=== PATIENT | female | born 1940 | race Caucasian/White ===

== ENCOUNTER 2017-05-04 04:50 | Inpatient (IN) | payer OTHER, MEDICAID ==
[~2017-05-04] VITALS: Ht 165.1 cm; Wt 61.2 kg
[~2017-05-04 04:50] MED LIST: BUPR300T46 PO; ESCI20TA37 PO; EZET1TAB29 PO; FAMO20TA8 PO; GABA-531 PO; GEMF600T3 PO; LEVO25TA7 PO; LISI20TA PO; MECL-97 PO; MULT PO; VITA1CAP PO; vitamin c PO
[2017-05-04 04:55] VITALS: BP_SYST 75
[2017-05-04] MEDS ORDERED: NACL 0.9% 1,000 ML IV SCH ×2 (05:23→07:07)
[2017-05-04 05:42] LABS: ABG TOTAL HEMOGLOBIN 9.9 G/dL (12.0-18.0); BLOOD GAS BASE EXCESS -1.1 mmol/L (-3.0-3.0); BLOOD GAS COHb% 0.3 % (0.5-1.5); BLOOD GAS HHB 1.2 % (0.0-6.0); BLOOD GAS PH 7.378 (7.350-7.450); BLOOD O2Hb% 98.2 % (94.0-97.0)
[2017-05-04] MEDS ORDERED: ketoprofen PO (05:45)
[2017-05-04] MEDS ORDERED: ATOR10TA68 PO (05:45)
[2017-05-04] MEDS ORDERED: EZET10TA PO (05:45)
[2017-05-04] MEDS ORDERED: [UNRECOGNIZED DRUG - OTHER] PO (05:45)
[2017-05-04] MEDS ORDERED: KRISS PO (05:45)
[2017-05-04] MEDS ORDERED: CEPH-568 PO (05:45)
[2017-05-04] MEDS ORDERED: TURM500C8 PO (05:45)
[2017-05-04] MEDS ORDERED: FOLI-43 PO (05:45)
[2017-05-04] MEDS ORDERED: ESOM40CA53 PO (05:45)
[2017-05-04] MEDS ORDERED: ACET-73 PO (05:45)
[2017-05-04] MEDS ORDERED: TRAM50TA92 PO (05:45)
[2017-05-04] MEDS ORDERED: ONDA4TAB5 PO (05:45)
[2017-05-04 06:03] LABS: HEMATOCRIT 30.4 % (36-48); HEMOGLOBIN 9.9 g/dL (12.0-16.0); MEAN CORPUSCULAR HEMOGLOBIN 30 pg (27-31); MEAN CORPUSCULAR HGB CONC 32 % (32-36); MEAN CORPUSCULAR VOLUME 93 fL (79.0-98.0); PLATELET COUNT (AUTO) 255 K/uL (130-430); RED BLOOD CELL COUNT(AUTO) 3.29 MIL/uL (4.2-6.2); RED CELL DISTRIBUTION WIDTH 14.9 % (9.0-15.0); WHITE BLOOD COUNT (AUTO) 13.6 K/uL (4.8-10.8)
[2017-05-04 06:07] LABS: ANION GAP 3 (5-15); CHLORIDE 108 mmol/L (98-107); CREATININE 1.92 mg/dL (0.55-1.30); GLUCOSE 223 mg/dL (70-99); POTASSIUM 4.1 mmol/L (3.5-5.1); SODIUM SERUM 139 mmol/L (136-145); UREA NITROGEN, BLOOD 31 mg/dL (8-21)
[2017-05-04 06:11] LABS: ALANINE AMINOTRANSFERASE 25 U/L (12-78); ALBUMIN 3.4 g/dL (3.4-4.8); ASPARTATE AMINOTRANSFERASE 21 U/L (10-37); LIPASE 148 U/L (73-393); PROTHROMBIN TIME 10.4 SECS (9.5-12.5); TOTAL BILIRUBIN 0.4 mg/dL (0.0-1.0); TOTAL PROTEIN, SERUM 5.9 g/dL (6.4-8.3)
[2017-05-04 06:31] LABS: BILIRUBIN,URINE NEGATIVE (NEGATIVE); BLOOD, URINE NEGATIVE (NEGATIVE); CLARITY/URINE CLEAR (CLEAR); COLOR,URINE YELLOW (YELLOW); GLUCOSE,URINE NEGATIVE (NEGATIVE); KETONES,URINE 1+ (NEGATIVE); LEUKOCYTE ESTERASE ,URINE NEGATIVE (NEGATIVE); NITRITE, URINE NEGATIVE (NEGATIVE); PH,URINE 5.5 (5.0-8.0); PROTEIN URINE NEGATIVE (NEGATIVE); UROBILINOGEN,URINE 0.2 (0.2-1.0)
[2017-05-04 06:42] LABS: BAND % (MANUAL) 7 % (0-6); BASOPHILS % (MANUAL) 0 % (0-2); EOSINOPHILS % (MANUAL) 0 % (0-7); LYMPHOCYTES % (MANUAL) 4 % (20-46); MONOCYTES % (MANUAL) 11 % (0-11)
[2017-05-04] MEDS ORDERED: PIPERACILLIN/TAZO 3.375 GM in NS 50 ML IV ONE (07:00)
[2017-05-04] MEDS ORDERED: NACL 0.9% 750 ML IV ONE (07:00)
[2017-05-04] MEDS ORDERED: ONDANSETRON HCL 4 MG/2 ML VIAL IVP PRN ×2 (07:15→09:30)
[2017-05-04] MEDS ORDERED: PIPERACILLIN/TAZOBACTAM 3.375 GM/VIAL (ZOSYN) IV ONE (07:39)
[2017-05-04 08:16] VITALS: BP_SYST 121
[2017-05-04] MEDS ORDERED: ENOXAPARIN SODIUM 40 MG/0.4 ML SYRINGE SUBCUT SCH (09:00)
[2017-05-04] MEDS ORDERED: DOCUSATE SODIUM 100 MG CAPSULE PO PRN (09:30)
[2017-05-04] MEDS ORDERED: ZOLPIDEM TARTRATE 5 MG TABLET PO PRN (09:30)
[2017-05-04] MEDS ORDERED: LORazepam 2 MG/ML VIAL IVP PRN (09:30)
[2017-05-04] MEDS ORDERED: MORPHINE 2 MG/ML INJ. SYRINGE IVP PRN (09:30)
[2017-05-04] MEDS ORDERED: MAGNESIUM SULFATE 50 ML IV PRN (09:30)
[2017-05-04] MEDS ORDERED: DEXTROSE 50% JECT 50 ML DISP.SYRIN IVP PRN (09:45)
[2017-05-04 11:39] VITALS: BP_SYST 107
[2017-05-04] MEDS: PIPERACILLIN/TAZO 2.25G/DEX-IS 50 ML IV SCH ×4 (12:00→23:17)
[2017-05-04] MEDS: D5NS 1,000 ML IV SCH (12:30)
[2017-05-04] MEDS ORDERED: PANTOPRAZOLE SODIUM 40 MG/VIAL (PROTONIX) IVP ONE (15:30)
[2017-05-04 16:27] VITALS: BP_SYST 135
[2017-05-04 20:00] VITALS: BP_SYST 118
[2017-05-05] VITALS: BP_SYST 107
[2017-05-05] MEDS: ACETAMINOPHEN 325 MG TABLET PO PRN ×2 (02:34→20:57)
[2017-05-05] MEDS: D5NS 1,000 ML IV SCH ×2 (02:46→15:36)
[2017-05-05 04:00] VITALS: BP_SYST 115
[2017-05-05] MEDS: PIPERACILLIN/TAZO 2.25G/DEX-IS 50 ML IV SCH ×3 (05:19→17:31)
[2017-05-05 07:37] LABS: PROTHROMBIN TIME 11.1 SECS (9.5-12.5)
[2017-05-05 08:00] VITALS: BP_SYST 144
[2017-05-05 08:05] LABS: ANION GAP 5 (5-15); CALCIUM 7.9 mg/dL (8.4-11.0); CHLORIDE 112 mmol/L (98-107); CREATININE 1.52 mg/dL (0.55-1.30); GLUCOSE 122 mg/dL (70-99); POTASSIUM 3.2 mmol/L (3.5-5.1); SODIUM SERUM 142 mmol/L (136-145); THYROID STIMULATING HORMONE 1.98 uIu/mL (0.34-4.82); UREA NITROGEN, BLOOD 23 mg/dL (8-21)
[2017-05-05 08:45] LABS: BASOPHILS % (AUTO) 0.5 % (0.0-2.0); EOSINOPHILS # (AUTO) 0.1 K/uL (0.0-0.4); EOSINOPHILS % (AUTO) 1.8 % (0.0-4.0); LYMPHOCYTES # (AUTO) 1.5 K/uL (1.0-5.5); LYMPHOCYTES % (AUTO) 30.3 % (20.5-51.5); MEAN CORPUSCULAR HEMOGLOBIN 30 pg (27-31); MEAN CORPUSCULAR HGB CONC 32 % (32-36); MEAN CORPUSCULAR VOLUME 93 fL (79.0-98.0); MONOCYTES # (AUTO) 0.4 K/uL (0.0-1.0); MONOCYTES % (AUTO) 8.4 % (1.7-9.3); PLATELET COUNT (AUTO) 138 K/uL (130-430); RED BLOOD CELL COUNT(AUTO) 2.06 MIL/uL (4.2-6.2); RED CELL DISTRIBUTION WIDTH 14.8 % (9.0-15.0)
[2017-05-05 08:59] LABS: HEMATOCRIT 19.1 % (36-48); HEMOGLOBIN 6.1 g/dL (12.0-16.0)
[2017-05-05] MEDS: PANTOPRAZOLE SODIUM 40 MG/VIAL (PROTONIX) IVP SCH (09:51)
[2017-05-05] MEDS ORDERED: NS IV ONE ×3 (11:45)
[2017-05-05] MEDS ORDERED: LIDOCAINE 1% IV ONE ×3 (11:45)
[2017-05-05] MEDS ORDERED: POTASSIUM CHLORIDE IV ONE ×3 (11:45)
[2017-05-05 11:47] LABS: FIBRINOGEN 207 mg/dL (200-400)
[2017-05-05] MEDS ORDERED: POTASSIUM CHLORIDE 40 MEQ, LIDOCAINE JECT 2% PF 100 MG 50 MG in NS 250 ML IV ONE (12:35)
[2017-05-05 12:41] VITALS: BP_SYST 118
[2017-05-05 16:11] VITALS: BP_SYST 121
[2017-05-05 20:00] VITALS: BP_SYST 125
[2017-05-06] VITALS: BP_SYST 133
[2017-05-06] MEDS: D5NS 1,000 ML IV SCH ×2 (00:18→14:36)
[2017-05-06] MEDS: PIPERACILLIN/TAZO 2.25G/DEX-IS 50 ML IV SCH ×4 (00:19→17:41)
[2017-05-06 03:30] VITALS: BP_SYST 143
[2017-05-06 07:53] VITALS: BP_SYST 155
[2017-05-06 08:07] LABS: BASOPHILS % (AUTO) 0.5 % (0.0-2.0); EOSINOPHILS # (AUTO) 0.1 K/uL (0.0-0.4); EOSINOPHILS % (AUTO) 2.8 % (0.0-4.0); HEMATOCRIT 25.4 % (36-48); HEMOGLOBIN 8.4 g/dL (12.0-16.0); LYMPHOCYTES # (AUTO) 1.4 K/uL (1.0-5.5); LYMPHOCYTES % (AUTO) 27.6 % (20.5-51.5); MEAN CORPUSCULAR HEMOGLOBIN 30 pg (27-31); MEAN CORPUSCULAR HGB CONC 33 % (32-36); MEAN CORPUSCULAR VOLUME 91 fL (79.0-98.0); MONOCYTES # (AUTO) 0.6 K/uL (0.0-1.0); NEUTROPHILS # (AUTO) 3.2 K/uL (1.8-7.7); NEUTROPHILS % (AUTO) 58.1 % (40.0-70.0); PLATELET COUNT (AUTO) 141 K/uL (130-430); RED BLOOD CELL COUNT(AUTO) 2.81 MIL/uL (4.2-6.2)
[2017-05-06 08:19] LABS: WHITE BLOOD COUNT (AUTO) 5.3 K/uL (4.8-10.8)
[2017-05-06] MEDS: PANTOPRAZOLE SODIUM 40 MG/VIAL (PROTONIX) IVP SCH (08:28)
[2017-05-06 08:36] LABS: ANION GAP 3 (5-15); CALCIUM 8.4 mg/dL (8.4-11.0); CHLORIDE 112 mmol/L (98-107); CREATININE 1.33 mg/dL (0.55-1.30); GLUCOSE 113 mg/dL (70-99); SODIUM SERUM 142 mmol/L (136-145); UREA NITROGEN, BLOOD 12 mg/dL (8-21)
[2017-05-06 12:02] VITALS: BP_SYST 124
[2017-05-06] MEDS ORDERED: MIDAZOLAM HCL 5 MG/5 ML VIAL IVP ONE (12:05)
[2017-05-06] MEDS ORDERED: NS IRRIG SOLN 1000 ML IR ONE (12:05)
[2017-05-06] MEDS ORDERED: LIDOCAINE/EPI 1% 1:100000 20 ML VIAL INJ ONE (12:05)
[2017-05-06] MEDS ORDERED: NS 1000 ML BAG IV ONE (12:05)
[2017-05-06] MEDS ORDERED: LR 1,000 ML IV SCH (12:36)
[2017-05-06] MEDS ORDERED: MEPERIDINE HCL/PF 25 MG/ML DISP.SYRIN IVP PRN (12:45)
[2017-05-06] MEDS ORDERED: HYDROmorphone 1 MG INJ. 1 MG/ML AMPUL IVP PRN (12:45)
[2017-05-06] MEDS ORDERED: HYDROmorphone 2 MG/ML VIAL IVP PRN ×2 (12:45)
[2017-05-06 16:09] VITALS: BP_SYST 130
[2017-05-06 20:00] VITALS: BP_SYST 123
[2017-05-07 00:02] VITALS: BP_SYST 134
[2017-05-07] MEDS: PIPERACILLIN/TAZO 2.25G/DEX-IS 50 ML IV SCH ×5 (00:06→23:46)
[2017-05-07] MEDS: D5NS 1,000 ML IV SCH ×2 (00:07→17:50)
[2017-05-07 04:44] VITALS: BP_SYST 147
[2017-05-07 07:45] LABS: BASOPHILS % (AUTO) 0.5 % (0.0-2.0); EOSINOPHILS # (AUTO) 0.2 K/uL (0.0-0.4); HEMOGLOBIN 8.9 g/dL (12.0-16.0); LYMPHOCYTES # (AUTO) 1.4 K/uL (1.0-5.5); LYMPHOCYTES % (AUTO) 20.7 % (20.5-51.5); MEAN CORPUSCULAR HEMOGLOBIN 30 pg (27-31); MEAN CORPUSCULAR HGB CONC 33 % (32-36); MEAN CORPUSCULAR VOLUME 91 fL (79.0-98.0); MONOCYTES # (AUTO) 0.7 K/uL (0.0-1.0); NEUTROPHILS # (AUTO) 4.5 K/uL (1.8-7.7); NEUTROPHILS % (AUTO) 65.8 % (40.0-70.0); PLATELET COUNT (AUTO) 159 K/uL (130-430); RED BLOOD CELL COUNT(AUTO) 2.97 MIL/uL (4.2-6.2); RED CELL DISTRIBUTION WIDTH 14.7 % (9.0-15.0); WHITE BLOOD COUNT (AUTO) 6.8 K/uL (4.8-10.8)
[2017-05-07 08:00] VITALS: BP_SYST 143
[2017-05-07 08:09] LABS: ANION GAP 3 (5-15); CALCIUM 8.5 mg/dL (8.4-11.0); CHLORIDE 108 mmol/L (98-107); CREATININE 1.13 mg/dL (0.55-1.30); GLUCOSE 116 mg/dL (70-99); POTASSIUM 3.4 mmol/L (3.5-5.1); SODIUM SERUM 139 mmol/L (136-145); UREA NITROGEN, BLOOD 9 mg/dL (8-21)
[2017-05-07] MEDS: PANTOPRAZOLE SODIUM 40 MG/VIAL (PROTONIX) IVP SCH (08:56)
[2017-05-07] MEDS ORDERED: GOLYTELY / COLYTE SOLUTION 4 LITERS PO ONE (14:45)
[2017-05-07] MEDS ORDERED: BISACODYL 5 MG TABLET.DR (DULCOLAX) PO ONE (14:45)
[2017-05-07 16:08] VITALS: BP_SYST 134
[2017-05-07] MEDS: POTASSIUM CHLORIDE 10 MEQ TAB.PRT.SR PO PRN (19:18)
[2017-05-07 19:50] VITALS: BP_SYST 138
[2017-05-07] MEDS: INSULIN ASPART 100 UNITS/ML, 10 ML VIAL (NovoLOG) SUBCUT PRN (21:26)
[2017-05-07] MEDS: ACETAMINOPHEN 325 MG TABLET PO PRN (23:46)
[2017-05-07 23:47] VITALS: BP_SYST 163
[2017-05-08 03:50] VITALS: BP_SYST 151
[2017-05-08] MEDS: PIPERACILLIN/TAZO 2.25G/DEX-IS 50 ML IV SCH ×4 (06:02→23:23)
[2017-05-08] MEDS: INSULIN ASPART 100 UNITS/ML, 10 ML VIAL (NovoLOG) SUBCUT PRN (06:08)
[2017-05-08 08:51] VITALS: BP_SYST 150
[2017-05-08] MEDS ORDERED: SIMETHICONE 40 MG/0.6 ML ML ONE (10:31)
[2017-05-08] MEDS ORDERED: MEPERIDINE HCL/PF 100 MG/ML AMP ONE (10:31)
[2017-05-08] MEDS ORDERED: MIDAZOLAM HCL 5 MG/5 ML VIAL ONE (10:32)
[2017-05-08] MEDS: D5NS 1,000 ML IV SCH ×2 (13:26→13:30)
[2017-05-08] MEDS: PANTOPRAZOLE SODIUM 40 MG/VIAL (PROTONIX) IVP SCH (13:27)
[2017-05-08 13:28] VITALS: BP_SYST 144
[2017-05-08 15:25] VITALS: BP_SYST 132
[2017-05-08 15:49] LABS: BASOPHILS % (AUTO) 0.2 % (0.0-2.0); EOSINOPHILS # (AUTO) 0.1 K/uL (0.0-0.4); EOSINOPHILS % (AUTO) 2.1 % (0.0-4.0); HEMATOCRIT 29.4 % (36-48); HEMOGLOBIN 9.5 g/dL (12.0-16.0); LYMPHOCYTES % (AUTO) 16.6 % (20.5-51.5); MEAN CORPUSCULAR HEMOGLOBIN 30 pg (27-31); MEAN CORPUSCULAR HGB CONC 32 % (32-36); MEAN CORPUSCULAR VOLUME 92 fL (79.0-98.0); MONOCYTES # (AUTO) 0.7 K/uL (0.0-1.0); MONOCYTES % (AUTO) 10.5 % (1.7-9.3); NEUTROPHILS # (AUTO) 4.5 K/uL (1.8-7.7); NEUTROPHILS % (AUTO) 70.6 % (40.0-70.0); PLATELET COUNT (AUTO) 175 K/uL (130-430); RED BLOOD CELL COUNT(AUTO) 3.21 MIL/uL (4.2-6.2); RED CELL DISTRIBUTION WIDTH 15.1 % (9.0-15.0); WHITE BLOOD COUNT (AUTO) 6.3 K/uL (4.8-10.8)
[2017-05-08 15:56] LABS: ANION GAP 4 (5-15); CALCIUM 8.5 mg/dL (8.4-11.0); CHLORIDE 112 mmol/L (98-107); CREATININE 1.01 mg/dL (0.55-1.30); GLUCOSE 104 mg/dL (70-99); POTASSIUM 3.5 mmol/L (3.5-5.1); SODIUM SERUM 143 mmol/L (136-145); UREA NITROGEN, BLOOD 7 mg/dL (8-21)
[2017-05-08 19:50] VITALS: BP_SYST 158
[2017-05-09 00:13] VITALS: BP_SYST 140
[2017-05-09 03:51] VITALS: BP_SYST 139
[2017-05-09] MEDS: PIPERACILLIN/TAZO 2.25G/DEX-IS 50 ML IV SCH ×3 (06:00→17:18)
[2017-05-09 06:44] LABS: BASOPHILS % (AUTO) 0.6 % (0.0-2.0); EOSINOPHILS # (AUTO) 0.2 K/uL (0.0-0.4); EOSINOPHILS % (AUTO) 3.5 % (0.0-4.0); HEMATOCRIT 26.1 % (36-48); HEMOGLOBIN 8.5 g/dL (12.0-16.0); LYMPHOCYTES # (AUTO) 1.3 K/uL (1.0-5.5); LYMPHOCYTES % (AUTO) 23.7 % (20.5-51.5); MEAN CORPUSCULAR HEMOGLOBIN 30 pg (27-31); MEAN CORPUSCULAR HGB CONC 33 % (32-36); MEAN CORPUSCULAR VOLUME 92 fL (79.0-98.0); MONOCYTES # (AUTO) 0.4 K/uL (0.0-1.0); MONOCYTES % (AUTO) 8.4 % (1.7-9.3); NEUTROPHILS # (AUTO) 3.4 K/uL (1.8-7.7); NEUTROPHILS % (AUTO) 63.8 % (40.0-70.0); PLATELET COUNT (AUTO) 194 K/uL (130-430); RED BLOOD CELL COUNT(AUTO) 2.83 MIL/uL (4.2-6.2); RED CELL DISTRIBUTION WIDTH 14.5 % (9.0-15.0); WHITE BLOOD COUNT (AUTO) 5.3 K/uL (4.8-10.8)
[2017-05-09 06:51] LABS: ANION GAP 3 (5-15); CALCIUM 8.6 mg/dL (8.4-11.0); CHLORIDE 109 mmol/L (98-107); CREATININE 1.05 mg/dL (0.55-1.30); GLUCOSE 124 mg/dL (70-99); POTASSIUM 3.3 mmol/L (3.5-5.1); SODIUM SERUM 141 mmol/L (136-145); UREA NITROGEN, BLOOD 6 mg/dL (8-21)
[2017-05-09 08:00] VITALS: BP_SYST 130
[2017-05-09] MEDS: PANTOPRAZOLE SODIUM 40 MG/VIAL (PROTONIX) IVP SCH (08:28)
[2017-05-09] MEDS: POTASSIUM CHLORIDE 10 MEQ TAB.PRT.SR PO PRN (08:28)
[2017-05-09 11:25] VITALS: BP_SYST 145
[2017-05-09] MEDS: D5NS 1,000 ML IV SCH ×2 (11:33→14:30)
[2017-05-09 15:23] VITALS: BP_SYST 126
[2017-05-09] MEDS ORDERED: LEVO750T45 PO (16:30)
[2017-05-09] MEDS ORDERED: DOCU-144 PO (16:32)
[2017-05-09 19:30] VITALS: BP_SYST 136
[2017-05-10] MEDS: PIPERACILLIN/TAZO 2.25G/DEX-IS 50 ML IV SCH ×4 (00:48→17:03)
[2017-05-10 00:59] VITALS: BP_SYST 122
[2017-05-10 04:38] VITALS: BP_SYST 136
[2017-05-10 07:19] LABS: BASOPHILS % (AUTO) 0.6 % (0.0-2.0); EOSINOPHILS # (AUTO) 0.2 K/uL (0.0-0.4); EOSINOPHILS % (AUTO) 3.2 % (0.0-4.0); HEMATOCRIT 24.1 % (36-48); HEMOGLOBIN 8.1 g/dL (12.0-16.0); LYMPHOCYTES # (AUTO) 1.1 K/uL (1.0-5.5); LYMPHOCYTES % (AUTO) 20.1 % (20.5-51.5); MEAN CORPUSCULAR HEMOGLOBIN 31 pg (27-31); MEAN CORPUSCULAR HGB CONC 34 % (32-36); MEAN CORPUSCULAR VOLUME 92 fL (79.0-98.0); MONOCYTES # (AUTO) 0.5 K/uL (0.0-1.0); MONOCYTES % (AUTO) 8.8 % (1.7-9.3); NEUTROPHILS # (AUTO) 3.8 K/uL (1.8-7.7); NEUTROPHILS % (AUTO) 67.3 % (40.0-70.0); PLATELET COUNT (AUTO) 194 K/uL (130-430); RED BLOOD CELL COUNT(AUTO) 2.63 MIL/uL (4.2-6.2); RED CELL DISTRIBUTION WIDTH 15.1 % (9.0-15.0); WHITE BLOOD COUNT (AUTO) 5.6 K/uL (4.8-10.8)
[2017-05-10 07:39] LABS: ANION GAP 3 (5-15); CALCIUM 8.6 mg/dL (8.4-11.0); CHLORIDE 109 mmol/L (98-107); CREATININE 1.13 mg/dL (0.55-1.30); GLUCOSE 122 mg/dL (70-99); PHOSPHORUS 3.1 mg/dL (2.7-4.5); POTASSIUM 3.5 mmol/L (3.5-5.1); SODIUM SERUM 141 mmol/L (136-145); UREA NITROGEN, BLOOD 8 mg/dL (8-21)
[2017-05-10 07:43] VITALS: BP_SYST 126
[2017-05-10] MEDS: PANTOPRAZOLE SODIUM 40 MG/VIAL (PROTONIX) IVP SCH (09:03)
[2017-05-10] MEDS: ACETAMINOPHEN 325 MG TABLET PO PRN (10:27)
[2017-05-10] MEDS: HYDROcodone/ACETAMIN 10-325 MG TAB PO PRN ×2 (11:19→21:43)
[2017-05-10] MEDS ORDERED: HYDROcodone/ACETAMIN 10-325 MG TAB ONE (11:26)
[2017-05-10 11:30] VITALS: BP_SYST 140
[2017-05-10] MEDS ORDERED: FUROSEMIDE 20 MG TABLET PO ONE (12:30)
[2017-05-10 15:24] VITALS: BP_SYST 132
[2017-05-10 19:39] VITALS: BP_SYST 126
[2017-05-11] VITALS (7 sets, daily range): BP systolic 112–146
[2017-05-11] MEDS: PIPERACILLIN/TAZO 2.25G/DEX-IS 50 ML IV SCH ×4 (00:26→17:44)
[2017-05-11 07:43] LABS: BASOPHILS % (AUTO) 0.7 % (0.0-2.0); EOSINOPHILS # (AUTO) 0.2 K/uL (0.0-0.4); EOSINOPHILS % (AUTO) 3.5 % (0.0-4.0); HEMATOCRIT 26.8 % (36-48); HEMOGLOBIN 8.9 g/dL (12.0-16.0); LYMPHOCYTES # (AUTO) 1.6 K/uL (1.0-5.5); LYMPHOCYTES % (AUTO) 26.1 % (20.5-51.5); MEAN CORPUSCULAR HEMOGLOBIN 31 pg (27-31); MEAN CORPUSCULAR HGB CONC 33 % (32-36); MEAN CORPUSCULAR VOLUME 93 fL (79.0-98.0); MONOCYTES # (AUTO) 0.7 K/uL (0.0-1.0); MONOCYTES % (AUTO) 10.9 % (1.7-9.3); NEUTROPHILS # (AUTO) 3.6 K/uL (1.8-7.7); NEUTROPHILS % (AUTO) 58.8 % (40.0-70.0); PLATELET COUNT (AUTO) 221 K/uL (130-430); RED BLOOD CELL COUNT(AUTO) 2.89 MIL/uL (4.2-6.2); RED CELL DISTRIBUTION WIDTH 14.9 % (9.0-15.0); WHITE BLOOD COUNT (AUTO) 6.1 K/uL (4.8-10.8)
[2017-05-11 07:47] LABS: ANION GAP 5 (5-15); CALCIUM 8.7 mg/dL (8.4-11.0); CHLORIDE 106 mmol/L (98-107); CREATININE 1.26 mg/dL (0.55-1.30); GLUCOSE 100 mg/dL (70-99); PHOSPHORUS 4.3 mg/dL (2.7-4.5); POTASSIUM 3.3 mmol/L (3.5-5.1); SODIUM SERUM 141 mmol/L (136-145); UREA NITROGEN, BLOOD 15 mg/dL (8-21)
[2017-05-11] MEDS: PANTOPRAZOLE SODIUM 40 MG/VIAL (PROTONIX) IVP SCH (08:54)
[2017-05-11] MEDS: POTASSIUM CHLORIDE 10 MEQ TAB.PRT.SR PO PRN (09:37)
== END 2017-05-11 20:23 | disposition home health service (06) | DRG 871 ==
LOC: SED 04:50 → STU 07:17 → SMU 05-08 13:00
PROVIDERS: ADMIT General Practice; ATTEND General Practice
PROC: 30233N1 Transfusion of Nonautologous Red Blood Cells into Peripheral Vein, Percutaneous Approach (ICD-10-PCS; principal; 2017-05-05)
PROC: 0H98XZZ Drainage of Buttock Skin, External Approach (ICD-10-PCS; 2017-05-06)
PROC: 0DB98ZX Excision of Duodenum, Via Natural or Artificial Opening Endoscopic, Diagnostic (ICD-10-PCS; 2017-05-08)
PROC: 0DJD8ZZ Inspection of Lower Intestinal Tract, Via Natural or Artificial Opening Endoscopic (ICD-10-PCS; 2017-05-08)
DX: A41.9 Sepsis, unspecified organism (principal); N17.0 Acute kidney failure with tubular necrosis; I95.9 Hypotension, unspecified; D63.8 Anemia in other chronic diseases classified elsewhere; G30.9 Alzheimer's disease, unspecified; D64.9 Anemia, unspecified; S30.0XXA Contusion of lower back and pelvis, initial encounter; I12.9 Hypertensive chronic kidney disease with stage 1 through stage 4 chronic kidney disease, or unspecified chronic kidney disease; F02.80 Dementia in other diseases classified elsewhere, unspecified severity, without behavioral disturbance, psychotic disturbance, mood disturbance, and anxiety; K52.9 Noninfective gastroenteritis and colitis, unspecified; E03.9 Hypothyroidism, unspecified; K76.9 Liver disease, unspecified; K21.9 Gastro-esophageal reflux disease without esophagitis; K44.9 Diaphragmatic hernia without obstruction or gangrene; K29.70 Gastritis, unspecified, without bleeding; K64.9 Unspecified hemorrhoids; K57.90 Diverticulosis of intestine, part unspecified, without perforation or abscess without bleeding; M51.36 Other intervertebral disc degeneration, lumbar region; M51.34 Other intervertebral disc degeneration, thoracic region; E78.00 Pure hypercholesterolemia, unspecified; F32.9 Major depressive disorder, single episode, unspecified; R09.02 Hypoxemia; N18.9 Chronic kidney disease, unspecified; Z66 Do not resuscitate; Z91.81 History of falling; Z79.899 Other long term (current) drug therapy; Z88.6 Allergy status to analgesic agent; Z88.2 Allergy status to sulfonamides; Z88.8 Allergy status to other drugs, medicaments and biological substances
CPT/HCPCS: 36415; 36600; 43239; 45380; 71010; 74000-TC; 74270-TC; 76700-TC; 80048; 80053; 81003; 82803-TC; 82962; 83036; 83605; 83690-TC; 83735-TC; 83880; 84100-TC; 84443-TC; 84484; 85007; 85025; 85027; 85379; 85384-TC; 85610-TC; 85730-TC; 86886; 86900; 86901; 86920; 87040-TC; 87070; 87070-TC; 87075-TC; 87081; 87086; 88305; 88313; 93005; 93880; 96361; 96365; 97116-GP; 97530-GP; 99285; C9113; J1650; J1815; J2001; J2060; J2175; J2250; J2270; J2543; J3475; J3480; J7030; J7042; J7050; P9021

== ENCOUNTER 2021-01-07 19:52 | Emergency (ER) | payer OTHER, MEDICAID ==
[~2021-01-07] VITALS: Ht 162.6 cm; Wt 63.5 kg
[~2021-01-07 19:52] MED LIST changes: +ACET-73 PO; +ATOR10TA68 PO; +DOCU-144 PO; -ESCI20TA37 PO; +ESCI20TA38 PO; +ESOM40CA53 PO; +EZET10TA PO; -EZET1TAB29 PO; -FAMO20TA8 PO; +FOLI-43 PO; -GABA-531 PO; -GEMF600T3 PO; +KRISS PO; +LEVO750T45 PO; -MECL-97 PO; +ONDA4TAB5 PO; +TRAM50TA92 PO; +TURM500C9 PO; +[UNRECOGNIZED DRUG - OTHER] PO
[2021-01-07 19:55] VITALS: BP_SYST 173
[2021-01-07] MEDS ORDERED: LIDOCAINE/EPI 1% 1:100000 20 ML VIAL INJ ONE (20:00)
[2021-01-07 21:45] VITALS: BP_SYST 155
== END 2021-01-07 21:45 | disposition home or self-care (01) ==
LOC: SED 19:52
DX: S01.81XA Laceration without foreign body of other part of head, initial encounter (principal); I10 Essential (primary) hypertension; E11.9 Type 2 diabetes mellitus without complications; E07.9 Disorder of thyroid, unspecified; E78.00 Pure hypercholesterolemia, unspecified; Z79.899 Other long term (current) drug therapy; Z88.2 Allergy status to sulfonamides; Z88.6 Allergy status to analgesic agent; W01.0XXA Fall on same level from slipping, tripping and stumbling without subsequent striking against object, initial encounter; Y93.89 Activity, other specified; Y92.89 Other specified places as the place of occurrence of the external cause; Y99.8 Other external cause status
CPT/HCPCS: 70450-TC; 76376; 99284

== ENCOUNTER 2021-03-09 21:43 | Emergency (ER) | payer OTHER, MEDICAID ==
[~2021-03-09] VITALS: Ht 162.6 cm; Wt 65.8 kg
[2021-03-09] MEDS ORDERED: BACITRACIN 1 GM OINT TP ONE ×2 (21:45→21:50)
[2021-03-09 21:50] VITALS: BP_SYST 160
[2021-03-10 03:59] VITALS: BP_SYST 138
== END 2021-03-10 03:59 | disposition home or self-care (01) ==
LOC: SED 21:43
DX: S50.02XA Contusion of left elbow, initial encounter (principal); S09.90XA Unspecified injury of head, initial encounter; I10 Essential (primary) hypertension; E11.9 Type 2 diabetes mellitus without complications; F32.9 Major depressive disorder, single episode, unspecified; Z88.6 Allergy status to analgesic agent; Z88.2 Allergy status to sulfonamides; Z88.5 Allergy status to narcotic agent; Z79.899 Other long term (current) drug therapy; W18.39XA Other fall on same level, initial encounter; Y93.89 Activity, other specified; Y92.89 Other specified places as the place of occurrence of the external cause; Y99.8 Other external cause status
CPT/HCPCS: 70450-TC; 76376; 99285

== ENCOUNTER 2021-04-30 22:04 | Emergency (ER) | payer OTHER, MEDICAID ==
[~2021-04-30] VITALS: Ht 162.6 cm; Wt 61.2 kg
[2021-04-30 22:10] VITALS: BP_SYST 153
[2021-04-30] MEDS ORDERED: ACETAMINOPHEN 500 MG TABLET PO ONE (23:00)
[2021-04-30] MEDS ORDERED: BUPR-120 PO (23:04)
[2021-04-30] MEDS ORDERED: LISI10TA29 PO (23:04)
[2021-04-30 23:51] LABS: BASOPHILS % (AUTO) 0.5 % (0.0-2.0); HEMATOCRIT 35.5 % (36-48); HEMOGLOBIN 12.1 g/dL (12.0-16.0); LYMPHOCYTES % (AUTO) 21.5 % (20.5-51.5); MEAN CORPUSCULAR HEMOGLOBIN 33 pg (27-31); MEAN CORPUSCULAR HGB CONC 34 % (32-36); MEAN CORPUSCULAR VOLUME 96 fL (79.0-98.0); MONOCYTES # (AUTO) 0.4 K/uL (0.0-1.0); MONOCYTES % (AUTO) 7.9 % (1.7-9.3); NEUTROPHILS # (AUTO) 3.3 K/uL (1.8-7.7); NEUTROPHILS % (AUTO) 69.1 % (40.0-70.0); PLATELET COUNT (AUTO) 151 K/uL (130-430); RED BLOOD CELL COUNT(AUTO) 3.72 MIL/uL (4.2-6.2); RED CELL DISTRIBUTION WIDTH 13.6 % (9.0-15.0); WHITE BLOOD COUNT (AUTO) 4.7 K/uL (4.8-10.8)
[2021-05-01 00:10] LABS: ANION GAP 7 (5-15); CALCIUM 8.7 mg/dL (8.4-11.0); CHLORIDE 103 mmol/L (98-107); CREATININE 1.38 mg/dL (0.55-1.30); GLUCOSE 108 mg/dL (70-99); POTASSIUM 4.7 mmol/L (3.5-5.1); SODIUM SERUM 138 mmol/L (136-145); UREA NITROGEN, BLOOD 26 mg/dL (8-21)
[2021-05-01 00:38] LABS: BILIRUBIN,URINE NEGATIVE (NEGATIVE); BLOOD, URINE NEGATIVE (NEGATIVE); CLARITY/URINE CLEAR (CLEAR); COLOR,URINE YELLOW (YELLOW); GLUCOSE,URINE NEGATIVE (NEGATIVE); KETONES,URINE NEGATIVE (NEGATIVE); LEUKOCYTE ESTERASE ,URINE NEGATIVE (NEGATIVE); NITRITE, URINE NEGATIVE (NEGATIVE); PH,URINE 7.5 (5.0-8.0); PROTEIN URINE NEGATIVE (NEGATIVE); UROBILINOGEN,URINE 0.2 (0.2-1.0)
[2021-05-01] MEDS ORDERED: ACET-2634 PO (01:57)
[2021-05-01 02:25] VITALS: BP_SYST 155
== END 2021-05-01 02:25 | disposition home or self-care (01) ==
LOC: SED 22:04
DX: S70.02XA Contusion of left hip, initial encounter (principal); I10 Essential (primary) hypertension; E11.9 Type 2 diabetes mellitus without complications; Z88.2 Allergy status to sulfonamides; Z88.5 Allergy status to narcotic agent; Z88.6 Allergy status to analgesic agent; Z79.899 Other long term (current) drug therapy; W18.39XA Other fall on same level, initial encounter; Y93.89 Activity, other specified; Y92.89 Other specified places as the place of occurrence of the external cause; Y99.8 Other external cause status
CPT/HCPCS: 36415; 73502; 80048; 81003; 85025; 99284

== ENCOUNTER 2021-08-31 21:40 | Emergency (ER) | payer OTHER, MEDICAID ==
[~2021-08-31] VITALS: Ht 162.6 cm; Wt 45.4 kg
[~2021-08-31 21:40] MED LIST changes: +ACET-2634 PO; +BUPR-120 PO; -BUPR300T46 PO; -LEVO750T45 PO; +LISI10TA29 PO; -LISI20TA PO; -TRAM50TA92 PO; -[UNRECOGNIZED DRUG - OTHER] PO
[2021-08-31 21:42] VITALS: BP_SYST 177
--- NOTE | 2021-08-31 21:42 | NUR ---
Placed in room 04 . Placed on ekg monitor tech, blood pressure machine and pulse oximeter. To gown for exam. Side rails up.
--- NOTE | 2021-08-31 21:44 | NUR ---
Dr Haynes evaluating patient at bedside
--- NOTE | 2021-08-31 21:45 | NUR ---
Pt off the unit for CT
--- NOTE | 2021-08-31 21:52 | NUR ---
Patient returned from ct scan positioned for comfort. Bed to low position sr up, continue to monitor.
--- NOTE | 2021-08-31 22:10 | NUR ---
# 16 FR Valencia catheter with use of sterile technique. Immediate return of 100 cc clear yellow urine noted. Bedside drainage bag placed below level of bladder. Urine sample collected and sent to lab. Pt tolerated procedure.
[2021-08-31 22:35] LABS: BILIRUBIN,URINE NEGATIVE (NEGATIVE); BLOOD, URINE 1+ (NEGATIVE); CLARITY/URINE CLEAR (CLEAR); COLOR,URINE YELLOW (YELLOW); GLUCOSE,URINE NEGATIVE (NEGATIVE); KETONES,URINE 1+ (NEGATIVE); LEUKOCYTE ESTERASE ,URINE NEGATIVE (NEGATIVE); NITRITE, URINE NEGATIVE (NEGATIVE); PROTEIN URINE TRACE (NEGATIVE); UROBILINOGEN,URINE 0.2 (0.2-1.0)
[2021-08-31 22:51] LABS: BASOPHILS % (AUTO) 0.4 % (0.0-2.0); HEMATOCRIT 40.7 % (36-48); HEMOGLOBIN 13.6 g/dL (12.0-16.0); LYMPHOCYTES # (AUTO) 0.5 K/uL (1.0-5.5); LYMPHOCYTES % (AUTO) 8.8 % (20.5-51.5); MEAN CORPUSCULAR HEMOGLOBIN 32 pg (27-31); MEAN CORPUSCULAR HGB CONC 34 % (32-36); MEAN CORPUSCULAR VOLUME 94 fL (79.0-98.0); MONOCYTES # (AUTO) 0.2 K/uL (0.0-1.0); NEUTROPHILS # (AUTO) 4.8 K/uL (1.8-7.7); NEUTROPHILS % (AUTO) 87.8 % (40.0-70.0); PLATELET COUNT (AUTO) 194 K/uL (130-430); RED BLOOD CELL COUNT(AUTO) 4.31 MIL/uL (4.2-6.2); RED CELL DISTRIBUTION WIDTH 13.4 % (9.0-15.0); WHITE BLOOD COUNT (AUTO) 5.5 K/uL (4.8-10.8)
[2021-08-31] MEDS ORDERED: KETAMINE 30 MG/3 ML SYRINGE IM ONE (23:00)
--- NOTE | 2021-08-31 23:00 | NUR ---
Patient starting to form words but still some words incomprehensible and but formed words are delayed. Positioned patient for comfort. Be to low position sr up. continue to monitor.
[2021-08-31 23:22] LABS: ANION GAP 10 (5-15); CALCIUM 9.3 mg/dL (8.4-11.0); CHLORIDE 102 mmol/L (98-107); CREATININE 1.34 mg/dL (0.55-1.30); GLUCOSE 115 mg/dL (70-99); POTASSIUM 4.3 mmol/L (3.5-5.1); SODIUM SERUM 140 mmol/L (136-145); UREA NITROGEN, BLOOD 20 mg/dL (8-21)
[2021-08-31] MEDS ORDERED: IOHEXOL 350 mgI/mL, 150 ML INFUS..BTL IV ONE (23:22)
[2021-08-31 23:27] LABS: PROTHROMBIN TIME 10.6 SECS (9.5-12.5)
[2021-08-31 23:28] LABS: ALANINE AMINOTRANSFERASE 28 U/L (12-78); ALBUMIN 4.1 g/dL (3.4-4.8); ASPARTATE AMINOTRANSFERASE 26 U/L (10-37); TOTAL BILIRUBIN 0.5 mg/dL (0.0-1.0)
[2021-08-31 23:38] LABS: BACTERIA,URINE FEW /HPF (None Seen); WBC,URINE 0-3 /HPF (0-3)
[2021-08-31] MEDS ORDERED: ASPIRIN 600 MG/SUPP.RECT RC ONE (23:45)
--- NOTE | 2021-08-31 23:48 | NUR ---
gabriela (karo) obtained and sent to lab.
--- NOTE | 2021-09-01 | NUR ---
ASA supp not available here at [facility] [place].
--- NOTE | 2021-09-01 00:25 | NUR ---
TRANSFER INFO [facility] ED Dr. Thurman [phone] [facility] ETA 0130 SPOKE TO [facility]
--- NOTE | 2021-09-01 00:28 | NUR ---
patient to ct scan via gurney [facility] w/ parks recreation director.
[2021-09-01 00:53] LABS: CKMB RELATIVE INDEX 0.9 (0.0-2.9); CREATINE KINASE MB 2.7 ng/mL (0-3.6)
--- NOTE | 2021-09-01 01:34 | NUR ---
Report given to [facility] lead [facility]. Patient to be transferred to [facility]. Is being transferred due to higher level of care. Receiving facility has accepting physician and available space. ER physician has signed transfer form. Patient or responsible green party has agreed to transfer and signed form. Patient belongings inventoried and will be sent with patient. Copy of nursing notes, lab reports, EKG, Physicians Orders and X-rays to be sent with patient. Report called to Natalie at receiving facility. Receiving physician is MD Waite. [facility] ambulance service has been called for transfer. ETA is now.
[2021-09-01 01:36] VITALS: BP_SYST 151
== END 2021-09-01 01:34 | disposition short-term general hospital (02) ==
LOC: SED 21:40
DX: I63.9 Cerebral infarction, unspecified (principal); F80.2 Mixed receptive-expressive language disorder; I21.4 Non-ST elevation (NSTEMI) myocardial infarction; I12.9 Hypertensive chronic kidney disease with stage 1 through stage 4 chronic kidney disease, or unspecified chronic kidney disease; E11.22 Type 2 diabetes mellitus with diabetic chronic kidney disease; N18.30 Chronic kidney disease, stage 3 unspecified; F03.90 Unspecified dementia, unspecified severity, without behavioral disturbance, psychotic disturbance, mood disturbance, and anxiety; Z20.822 Contact with and (suspected) exposure to COVID-19; Z88.2 Allergy status to sulfonamides; Z88.5 Allergy status to narcotic agent; Z88.6 Allergy status to analgesic agent; Z79.899 Other long term (current) drug therapy
CPT/HCPCS: 36415; 70450; 70496; 70498; 71045; 76376; 80053; 81000; 82550; 82553; 83605; 83880; 84484; 85025; 85610; 85730; 87040; 87426; 93005; 99291; Q9967; 99285

== ENCOUNTER 2022-08-25 17:05 | Inpatient (IN) | payer OTHER, MEDICAID ==
[~2022-08-25] VITALS: Ht 154.9 cm; Wt 63.3 kg
[~2022-08-25 17:05] MED LIST changes: +Aspirin Ec PO; +DOXY100C PO; -ESCI20TA38 PO
[2022-08-25 17:28] VITALS: BP_SYST 158
[2022-08-25] MEDS ORDERED: LORazepam 2 MG/ML VIAL IVP ONE ×2 (17:45→21:00)
[2022-08-25 18:04] LABS: BASOPHILS # (AUTO) 0.1 K/uL (0.0-0.2); HEMATOCRIT 39.4 % (36-48); HEMOGLOBIN 13.3 g/dL (12.0-16.0); WHITE BLOOD COUNT (AUTO) 4.2 K/uL (4.8-10.8)
[2022-08-25 18:09] LABS: BASOPHILS % (AUTO) 1.2 % (0.0-2.0); EOSINOPHILS % (AUTO) 0.3 % (0.0-4.0); LYMPHOCYTES # (AUTO) 0.9 K/uL (1.0-5.5); LYMPHOCYTES % (AUTO) 20.9 % (20.5-51.5); MEAN CORPUSCULAR HEMOGLOBIN 31 pg (27-31); MEAN CORPUSCULAR HGB CONC 34 % (32-36); MEAN CORPUSCULAR VOLUME 93 fL (79.0-98.0); MONOCYTES # (AUTO) 0.3 K/uL (0.0-1.0); MONOCYTES % (AUTO) 7.9 % (1.7-9.3); NEUTROPHILS # (AUTO) 2.9 K/uL (1.8-7.7); NEUTROPHILS % (AUTO) 69.7 % (40.0-70.0); PLATELET COUNT (AUTO) 170 K/uL (130-430); RED BLOOD CELL COUNT(AUTO) 4.22 MIL/uL (4.2-6.2); RED CELL DISTRIBUTION WIDTH 16.7 % (9.0-15.0)
[2022-08-25 19:08] LABS: ANION GAP 14 (5-15); CALCIUM 9.3 mg/dL (8.4-11.0); CHLORIDE 103 mmol/L (98-107); CREATININE 1.27 mg/dL (0.55-1.30); GLUCOSE 125 mg/dL (70-99); UREA NITROGEN, BLOOD 25 mg/dL (8-21)
[2022-08-25 19:17] LABS: ALANINE AMINOTRANSFERASE 32 U/L (12-78); ALBUMIN 3.6 g/dL (3.4-4.8); ASPARTATE AMINOTRANSFERASE 31 U/L (10-37); TOTAL BILIRUBIN 0.4 mg/dL (0.0-1.0)
[2022-08-25] MEDS ORDERED: ASPIRIN 325 MG TABLET PO ONE (20:00)
--- NOTE | 2022-08-25 20:13 | NUR ---
Patient to ER bed H3 to gown for evaluation. Side rails up. Report given to JORGE A HOPKINS.
[2022-08-25] MEDS ORDERED: LORazepam 2 MG/ML VIAL ONE (20:22)
[2022-08-25] MEDS ORDERED: levETIRAcetam 1,000 MG in NS 90 ML IV ONE (20:30)
--- NOTE | 2022-08-25 20:30 | NUR ---
Report received from SANDEEP Blancas; assuming care of patient at this time.
--- NOTE | 2022-08-25 20:35 | NUR ---
Patient presents to ED from [facility] for c/o tonic colonic seizure x2. Patient's last witnessed seizure was approx 3 hours ago. Patient has hx of HTN, hyperthyroid, CKD, depression. ER MD Mart made aware.
[2022-08-25] MEDS: HEPARIN SODIUM,PORCINE 5,000 UNITS/ML VIAL SUBCUT SCH (21:00)
[2022-08-25] MEDS ORDERED: MUPIROCIN 2% TOPICAL OINTMENT 22 GM NS PRN (21:00)
[2022-08-25] MEDS ORDERED: ACETAMINOPHEN 325 MG TABLET PO PRN (21:00)
[2022-08-25] MEDS ORDERED: DOCUSATE SODIUM 100 MG CAPSULE PO PRN (21:00)
[2022-08-25] MEDS ORDERED: ONDANSETRON HCL 4 MG/2 ML VIAL IVP PRN (21:00)
[2022-08-25] MEDS ORDERED: MAGNESIUM SULFATE 50 ML IV PRN (21:00)
[2022-08-25] MEDS ORDERED: ZOLPIDEM TARTRATE 5 MG TABLET PO PRN (21:00)
[2022-08-25] MEDS ORDERED: POTASSIUM CHLORIDE 20 MEQ TAB.PRT.SR PO PRN (21:00)
[2022-08-25] MEDS: levETIRAcetam 500 MG TABLET PO SCH (21:00)
[2022-08-25] MEDS ORDERED: LORazepam 2 MG/ML VIAL IVP PRN (21:00)
--- NOTE | 2022-08-25 21:26 | NUR ---
Patient had seizure lasting 30 seconds; ER MD Mart made aware; gave verbal order for 1mg Ativan IV at this time.
--- NOTE | 2022-08-25 21:50 | NUR ---
Pt moved to bed 8.Primary nurse notified.
--- NOTE | 2022-08-25 23:00 | NUR ---
Patient sleeping comfortably in bed with seizure pads and safety precautions in place. Nad noted at this time.
--- NOTE | 2022-08-26 02:35 | NUR ---
COVID 19 SWAB TEST ADMINISTERED BY ILYA MESSINA AND SENT TO THE LAB FOR ANALYSIS
--- NOTE | 2022-08-26 05:36 | NUR ---
Patient sleeping comfortably in bed with seizure pads and safe precautions in place. Nad noted at this time
--- NOTE | 2022-08-26 07:17 | NUR ---
Report given to SANDEEP Segundo to assume care of patient at this time.
--- NOTE | 2022-08-26 07:35 | NUR ---
RECEIVED PT, IN NAD. PT WITH EYES CLOSED, VSS. SAFTEY PRECAUTIONS IN PLACE.
[2022-08-26 07:57] LABS: ANION GAP 5 (5-15); CALCIUM 9.3 mg/dL (8.4-11.0); CHLORIDE 103 mmol/L (98-107); CREATININE 0.98 mg/dL (0.55-1.30); GLUCOSE 106 mg/dL (70-99); UREA NITROGEN, BLOOD 16 mg/dL (8-21)
[2022-08-26 08:15] LABS: BASOPHILS # (AUTO) 0.1 K/uL (0.0-0.2); BASOPHILS % (AUTO) 0.8 % (0.0-2.0); EOSINOPHILS % (AUTO) 0.1 % (0.0-4.0); HEMATOCRIT 42.5 % (36-48); HEMOGLOBIN 14.2 g/dL (12.0-16.0); LYMPHOCYTES # (AUTO) 1.5 K/uL (1.0-5.5); MEAN CORPUSCULAR HEMOGLOBIN 31 pg (27-31); MEAN CORPUSCULAR HGB CONC 33 % (32-36); MEAN CORPUSCULAR VOLUME 93 fL (79.0-98.0); MONOCYTES # (AUTO) 0.6 K/uL (0.0-1.0); NEUTROPHILS # (AUTO) 4.9 K/uL (1.8-7.7); NEUTROPHILS % (AUTO) 69.1 % (40.0-70.0); PLATELET COUNT (AUTO) 190 K/uL (130-430); RED BLOOD CELL COUNT(AUTO) 4.59 MIL/uL (4.2-6.2); RED CELL DISTRIBUTION WIDTH 16.7 % (9.0-15.0)
--- NOTE | 2022-08-26 08:26 | NUR ---
DR GIORDANO PAGED TO NOTIFY OF HIGH TROPONIN. DR COTTON'S CONSULT. DR THORNTON INFORMED, BUT INFORMED TO NOTIFY [facility]
[2022-08-26 08:48] LABS: WHITE BLOOD COUNT (AUTO) 7.1 K/uL (4.8-10.8)
[2022-08-26] MEDS: ASPIRIN 81 MG TABLET(ECOTRIN) PO SCH (09:00)
[2022-08-26] MEDS ORDERED: LISINOPRIL 10 MG TABLET (PRINIVIL) PO SCH (09:00)
[2022-08-26] MEDS: levETIRAcetam 500 MG TABLET PO SCH ×2 (09:00→21:55)
[2022-08-26] MEDS: LEVOTHYROXINE SODIUM 0.05 MG TABLET PO SCH (09:00)
--- NOTE | 2022-08-26 09:03 | NUR ---
DR COTTON IN NURSING STATION, TALKED WITH PT'S DTR. CODE STATUS FORM FILED DNR, SIGNED BY DR COTTON.
--- NOTE | 2022-08-26 09:30 | NUR ---
DTR AVILA CALLED WITH ECHO RESULTS DONE ON 03/22/22, EF-56%, TRACE MR, TRACE TR.
--- NOTE | 2022-08-26 09:43 | NUR ---
MALKA TORRES AT NURSING STATION, UPDATED ON STATUS AND LAB VALUES. INFORMED THT DTR CALLED WITH ECHO RESULTS-INFORMED WITH INFO.
[2022-08-26] MEDS: buPROPion HCL 150 MG XL TAB PO SCH (09:58)
[2022-08-26] MEDS: HEPARIN SODIUM,PORCINE 5,000 UNITS/ML VIAL SUBCUT SCH ×2 (10:27→22:01)
[2022-08-26] MEDS: NACL 0.9% 1,000 ML IV SCH ×2 (10:33→22:10)
--- NOTE | 2022-08-26 12:25 | NUR ---
PT SOILED IN URINE. BED LINEN CHANGED AND PT'S GOWN CHNAGED. REPOSITIONED FOR COMFORT. SAFTEY AND SEUIZRE PRECAUTIONS IN PLACE.
--- NOTE | 2022-08-26 14:06 | NUR ---
DR COTTON PAGED TO INFORM ABOUT HIGH BP. PT DROWSY, UNABLE TO AROUSE TO TAKE PO MEDS.
--- NOTE | 2022-08-26 15:37 | NUR ---
EEG BEING DONE AT BEDSIDE
--- NOTE | 2022-08-26 15:39 | NUR ---
DR COTTON INFORMED ABOUT HIGH BP, ORDERS RECEIEVED.
[2022-08-26] MEDS ORDERED: hydrALAZINE HCL 20 MG/ML VIAL IVP PRN (16:00)
--- NOTE | 2022-08-26 16:59 | NUR ---
Admit bed requested Patient will be admitted to care of . Admitted to TELEMETRY unit. Diagnosis NEW ONSET SEIZURE Inpatient (Yes or No) YES Observation (Yes or No) NO Orientation concerns or request close to nursing station (Yes or No) NO Covid Status NEG On vent or bipap NO Isolation requirements NO Needs a sitter NO From Home (Yes or if No enter name of facility) Requires Dialysis (Yes or No) NO Med Rec Completed (Yes of No) YES
--- NOTE | 2022-08-26 17:43 | NUR ---
PT WITH EYES OPEN, LEGS IN BETWEEN RAILS. ALERT TO FIRST NAME ONLY. DENIES ANY PAIN. REORIENTED TO PLACE, TIME AND PLAN OF CARE. IV FLUIDS INFUSING WELL. REPOSITIONED FOR COMFORT. WILL CONT OT MONITOR CLOSELY. NO SEIZURE ACTIVITY NOTED.
--- NOTE | 2022-08-26 18:49 | NUR ---
Patient will be admitted to care of DR JAVIER. Admitted to unit. Will go to room . Belongings list completed. Complete and up to date summary report printed. SBAR report to be given at bedside with opportunity for questions.
--- NOTE | 2022-08-26 19:00 | NUR ---
ADMISSION NOTE Received patient from ER via gurney. Patient admitted with diagnosis of NEW ONSET SEIZURE. Patient is awake, alert, oriented X 1-2. Patient oriented to hospital room, call light, toileting, pain management and safety-teach back done. Patient informed that their room number is 112B. Personal belongings checked and Belongings List documented. Call light within reach.
[2022-08-26 19:59] VITALS: BP_SYST 146
[2022-08-26 20:00] VITALS: BP_SYST 146
[2022-08-27 00:43] VITALS: BP_SYST 160
[2022-08-27] MEDS: NACL 0.9% 1,000 ML IV SCH ×2 (01:36→19:15)
[2022-08-27 06:50] LABS: BASOPHILS # (AUTO) 0.1 K/uL (0.0-0.2); BASOPHILS % (AUTO) 1.3 % (0.0-2.0); EOSINOPHILS # (AUTO) 0.1 K/uL (0.0-0.4); EOSINOPHILS % (AUTO) 1.3 % (0.0-4.0); HEMATOCRIT 41.2 % (36-48); HEMOGLOBIN 13.8 g/dL (12.0-16.0); LYMPHOCYTES # (AUTO) 1.5 K/uL (1.0-5.5); LYMPHOCYTES % (AUTO) 34.6 % (20.5-51.5); MEAN CORPUSCULAR HEMOGLOBIN 31 pg (27-31); MEAN CORPUSCULAR HGB CONC 33 % (32-36); MEAN CORPUSCULAR VOLUME 93 fL (79.0-98.0); MONOCYTES # (AUTO) 0.5 K/uL (0.0-1.0); MONOCYTES % (AUTO) 10.2 % (1.7-9.3); NEUTROPHILS # (AUTO) 2.3 K/uL (1.8-7.7); NEUTROPHILS % (AUTO) 52.6 % (40.0-70.0); PLATELET COUNT (AUTO) 169 K/uL (130-430); RED BLOOD CELL COUNT(AUTO) 4.41 MIL/uL (4.2-6.2); RED CELL DISTRIBUTION WIDTH 16.5 % (9.0-15.0); WHITE BLOOD COUNT (AUTO) 4.5 K/uL (4.8-10.8)
--- NOTE | 2022-08-27 06:54 | NUR ---
PATIENT IN BED RESTING, DENIES ALL PAIN DURING THIS SHIFT. PATIENT WITH PIV TO LEFT AC, PATENT AND INTACT. PATIENT TOOK ALL HS MEDICATION WITH NO COMPLAINTS AND TOLERATED WELL. PATIENT WITH BRUISING TO BUE. PATIENT UNABLE TO KEEP LEFT ARM STRAIGHT FOR IVF INFUSING. THIS NURSE PLACED A SECOND PIV TO PATIENT R FA 24G FOR ADEQUATE IVF INFUSION. PATIENT SKIN TONE APPEARS TO HAVE A YELLOWISH TINT THIS AM. PATIENT HAD LITTLE PO INTAKE DURING THIS SHIFT.
[2022-08-27 07:03] LABS: ANION GAP 6 (5-15); CHLORIDE 107 mmol/L (98-107); CREATININE 1.05 mg/dL (0.55-1.30); GLUCOSE 83 mg/dL (70-99); UREA NITROGEN, BLOOD 22 mg/dL (8-21)
[2022-08-27 08:00] VITALS: BP_SYST 168
[2022-08-27] MEDS ORDERED: LISINOPRIL 10 MG TABLET (PRINIVIL) PO ONE (09:00)
[2022-08-27] MEDS: buPROPion HCL 150 MG XL TAB PO SCH (10:42)
[2022-08-27] MEDS: LEVOTHYROXINE SODIUM 0.05 MG TABLET PO SCH (10:43)
[2022-08-27] MEDS: ASPIRIN 81 MG TABLET(ECOTRIN) PO SCH (10:43)
[2022-08-27] MEDS: HEPARIN SODIUM,PORCINE 5,000 UNITS/ML VIAL SUBCUT SCH ×2 (10:44→22:29)
[2022-08-27] MEDS: levETIRAcetam 500 MG in NS 100 ML IV SCH ×2 (10:50→22:24)
[2022-08-27 12:00] VITALS: BP_SYST 159
[2022-08-27 16:00] VITALS: BP_SYST 135
--- NOTE | 2022-08-27 16:35 | NUR ---
Discharge Preferences This song writer spoke with Mary ([phone])Miss Tovar's daughter. She stated that she prefers for Miss Carvalho to return to [facility] in the memory care division if possible. If that is not available she wants her to return to her apartment in assisted living with the care givers she had prior to admission. she also states that she has a history of left foot drop wears an AFO brace and is usually WC bound. She also states that she does not want her to have a stress test.
[2022-08-27 18:15] VITALS: BP_SYST 135
--- NOTE | 2022-08-27 18:19 | NUR ---
STRESS TEST CANCELED BY DR. Silvestre GIORDANO PER FAMILY REQUEST
--- NOTE | 2022-08-27 19:15 | NUR ---
Handoff given to My
[2022-08-27 20:00] VITALS: BP_SYST 161
[2022-08-27] MEDS: LISINOPRIL 10 MG TABLET (PRINIVIL) PO SCH (22:24)
[2022-08-28] VITALS: BP_SYST 152
[2022-08-28 01:06] LABS: BILIRUBIN,URINE NEGATIVE (NEGATIVE); COLOR,URINE YELLOW (YELLOW); GLUCOSE,URINE NEGATIVE (NEGATIVE); KETONES,URINE 1+ (NEGATIVE); LEUKOCYTE ESTERASE ,URINE NEGATIVE (NEGATIVE); NITRITE, URINE NEGATIVE (NEGATIVE); PROTEIN URINE NEGATIVE (NEGATIVE)
[2022-08-28 01:15] LABS: BLOOD, URINE TRACE (NEGATIVE); CLARITY/URINE HAZY (CLEAR)
[2022-08-28 01:17] LABS: BACTERIA,URINE RARE /HPF (None Seen); MUCUS,URINE 1+ /LPF (None Seen); RBC,URINE 0-3 /HPF (0-3); WBC,URINE 0-3 /HPF (0-3)
--- NOTE | 2022-08-28 04:14 | NUR ---
PATIENT IN BED RESTING, EYES CLOSED, NO S/S OF PAIN NOTED AT THIS TIME. PATIENT WAS [place] CL[place] [facility] [place]. PATIENT ABLE TO REPOSITION SELF IN BED. PATIENT ATTEMPTED X2 TO GET OOB WITHOUT ASSISTANCE, BED ALARM SOUNDED AND STAFF RESPONDED AND PATIENT WAS ASSISTED AND REPOSITIONED BACK IN BED. PATIENT VERBALIZED NO C/O PAIN AT THIS TIME, VSS. PATIENT UA COLLECTED AND SENT TO LAB.
[2022-08-28] MEDS: NACL 0.9% 1,000 ML IV SCH (06:12)
[2022-08-28 06:52] LABS: BASOPHILS % (AUTO) 1.3 % (0.0-2.0); EOSINOPHILS # (AUTO) 0.1 K/uL (0.0-0.4); EOSINOPHILS % (AUTO) 1.9 % (0.0-4.0); HEMATOCRIT 37.5 % (36-48); HEMOGLOBIN 12.7 g/dL (12.0-16.0); LYMPHOCYTES # (AUTO) 1.2 K/uL (1.0-5.5); LYMPHOCYTES % (AUTO) 31.7 % (20.5-51.5); MEAN CORPUSCULAR HEMOGLOBIN 31 pg (27-31); MEAN CORPUSCULAR HGB CONC 34 % (32-36); MEAN CORPUSCULAR VOLUME 92 fL (79.0-98.0); MONOCYTES # (AUTO) 0.3 K/uL (0.0-1.0); MONOCYTES % (AUTO) 8.2 % (1.7-9.3); NEUTROPHILS # (AUTO) 2.1 K/uL (1.8-7.7); NEUTROPHILS % (AUTO) 56.9 % (40.0-70.0); PLATELET COUNT (AUTO) 140 K/uL (130-430); RED BLOOD CELL COUNT(AUTO) 4.07 MIL/uL (4.2-6.2); RED CELL DISTRIBUTION WIDTH 16.1 % (9.0-15.0); WHITE BLOOD COUNT (AUTO) 3.7 K/uL (4.8-10.8)
[2022-08-28 06:57] LABS: ANION GAP 7 (5-15); CALCIUM 8.4 mg/dL (8.4-11.0); CHLORIDE 108 mmol/L (98-107); CREATININE 0.99 mg/dL (0.55-1.30); GLUCOSE 100 mg/dL (70-99); UREA NITROGEN, BLOOD 21 mg/dL (8-21)
[2022-08-28 08:00] VITALS: BP_SYST 142
--- NOTE | 2022-08-28 08:00 | NUR ---
PATIENT SITTING AT BEDSIDE. PATIENT REFUSED MORNING BLOOD DRAWS AND STATED HE IS ANEMIC AND THIS MAKES IT WORSE.
[2022-08-28] MEDS ORDERED: REGADENOSON 0.4 MG/5 ML SYRINGE IVP ONE ×2 (09:00)
--- NOTE | 2022-08-28 09:00 | NUR ---
PATIENT CAME OUT OF ROOM AND STATED HE WANTS TO SIGN THE PAPER SO HE CAN LEAVE OR HE WILL JUST WALK OUT. NURSE EXPLAINED TO PATIENT RISKS AND CONSEQUENCES OF LEAVING AGAINST MEDICAL [facility]ISE. PATIENT VERBALIZED UNDERSTANDING BUT CONTINUE TO INSIST ON LEAVING HOSPITAL. NURSE INFORMED PATIENT TO COME BACK TO THE HOSPITAL OR GET TO NEAREST EMERGENCY ROOM IF HE EXPERIENCES ANY DIFFICULTY BREATHING, OR GETS WORSE. PATIENT VERBALIZED UNDERSTANDING. PATIENT SIGNED AMA PAPER AND ID BAND AND IV REMOVED. ALL BELONGINGS WITH PATIENT. Addendum: 08/28/22 at 1834 by La Judd RN RN STRIKE OUT, WRONG PATIENT Addendum: 08/28/22 at 1835 by La Judd RN RN STRIKE OUT, WRONG PATIENT
--- NOTE | 2022-08-28 09:10 | NUR ---
MADE BILLPOSTER AWARE OF AMA. TELE MONITOR RETURNED TO DESKTOP PUBLISHING SPECIALIST. Addendum: 08/28/22 at 1834 by La Judd RN RN STRIKE OUT, WRONG PATIENT
[2022-08-28] MEDS ORDERED: LEVE500T21 PO ×2 (09:12→14:19)
--- NOTE | 2022-08-28 09:30 | NUR ---
PAGED DR GIORDANO TO INFORM OF AWAITING CALL BACK. Addendum: 08/28/22 at 1834 by La Judd RN RN STRIKE OUT, WRONG PATIENT
--- NOTE | 2022-08-28 10:00 | NUR ---
DR GIORDANO ON UNIT. MADE DR GIORDANO AWARE PATIENT LEFT AMA. DOCTOR VERBALIZED UNDERSTANDING. Addendum: 08/28/22 at 1834 by La Judd RN RN STRIKE OUT, WRONG PATIENT.
[2022-08-28] MEDS: buPROPion HCL 150 MG XL TAB PO SCH (10:21)
[2022-08-28] MEDS: LEVOTHYROXINE SODIUM 0.05 MG TABLET PO SCH (10:21)
[2022-08-28] MEDS: ASPIRIN 81 MG TABLET(ECOTRIN) PO SCH (10:22)
[2022-08-28] MEDS: LISINOPRIL 10 MG TABLET (PRINIVIL) PO SCH (10:23)
[2022-08-28] MEDS: HEPARIN SODIUM,PORCINE 5,000 UNITS/ML VIAL SUBCUT SCH (10:26)
[2022-08-28] MEDS: levETIRAcetam 500 MG in NS 100 ML IV SCH (10:29)
[2022-08-28 11:51] VITALS: BP_SYST 128
--- NOTE | 2022-08-28 14:28 | NUR ---
CM: Deborah, staff at [facility] requested dr. Shanks to call in Keppra and home prescription to [facility] tel # [phone], fax # [phone], address [address] [place] [address]. Pt 's dtr concerns pt will miss the pm Keppra dose tonight.
[2022-08-28] MEDS ORDERED: METOPROLOL SUCCINATE 25 MG TAB.SR.24H (TOPROL XL) PO ONE (14:45)
[2022-08-28 15:39] VITALS: BP_SYST 179
[2022-08-28 16:00] VITALS: BP_SYST 158
[2022-08-28 16:53] VITALS: BP_SYST 154
--- NOTE | 2022-08-28 17:30 | NUR ---
PATIENT DISCHARGE INSTRUCTIONS AND EDUCATION GIVEN AND THOROUGHLY EXPLAINED TO PATIENT AND DAUGHTER. VITAL SIGNS STABLE. ALL BELONGINGS WITH PATIENT.
[2022-08-29] MEDS ORDERED: METOPROLOL SUCCINATE 25 MG TAB.SR.24H (TOPROL XL) PO SCH (09:00)
== END 2022-08-28 17:30 | disposition home or self-care (01) | DRG 100 ==
LOC: SED 17:05 → STU 20:17
PROVIDERS: ADMIT General Practice; ATTEND General Practice
PROC: 4A00X4Z Measurement of Central Nervous Electrical Activity, External Approach (ICD-10-PCS; principal; 2022-08-26)
DX: R56.9 Unspecified convulsions (principal); I21.A1 Myocardial infarction type 2; G90.8 Other disorders of autonomic nervous system; E78.00 Pure hypercholesterolemia, unspecified; F32.A Depression, unspecified; E03.9 Hypothyroidism, unspecified; I25.10 Atherosclerotic heart disease of native coronary artery without angina pectoris; E78.5 Hyperlipidemia, unspecified; I10 Essential (primary) hypertension; Z20.822 Contact with and (suspected) exposure to COVID-19; K21.9 Gastro-esophageal reflux disease without esophagitis; F03.90 Unspecified dementia, unspecified severity, without behavioral disturbance, psychotic disturbance, mood disturbance, and anxiety; Z88.1 Allergy status to other antibiotic agents; Z88.5 Allergy status to narcotic agent; Z91.013 Allergy to seafood; Z88.8 Allergy status to other drugs, medicaments and biological substances
CPT/HCPCS: 36415; 70450-TC; 71045; 76376; 80048; 80053; 81000; 83036; 83735; 83880; 84443; 84484; 85025; 93005; 93306; 95816; 96361; 96372; 96374; 97112-GP; 97116-GP; 97530-GP; 99285; G0378; J0360; J1644; J1953; J2060; J2785; J7030

== ENCOUNTER 2023-04-03 14:18 | Emergency (ER) | payer OTHER, MEDICAID ==
[~2023-04-03] VITALS: Ht 162.6 cm; Wt 63.5 kg
[~2023-04-03 14:18] MED LIST changes: -ACET-73 PO; -Aspirin Ec PO; -DOCU-144 PO; -DOXY100C PO; +ESCI10TA PO; -EZET10TA PO; -KRISS PO; +LEVE500T21 PO; -LEVO25TA7 PO; +LORA-258 PO; -ONDA4TAB5 PO; +SYN75 PO; -TURM500C9 PO
[2023-04-03 14:20] VITALS: BP_SYST 142; PULSE 76; RESP 18; TEMP 97.2; O2SAT 96
[2023-04-03] MEDS ORDERED: NACL 0.9% 1,000 ML IV ONE ×2 (15:00)
[2023-04-03] MEDS ORDERED: MEMA5TAB PO (15:26)
[2023-04-03 15:46] LABS: BASOPHILS % (AUTO) 0.9 % (0.0-2.0); EOSINOPHILS # (AUTO) 0.1 K/uL (0.0-0.4); HEMATOCRIT 39.7 % (36-48); HEMOGLOBIN 12.8 g/dL (12.0-16.0); LYMPHOCYTES # (AUTO) 1.4 K/uL (1.0-5.5); LYMPHOCYTES % (AUTO) 33.1 % (20.5-51.5); MEAN CORPUSCULAR HEMOGLOBIN 31 pg (27-31); MEAN CORPUSCULAR HGB CONC 32 % (32-36); MEAN CORPUSCULAR VOLUME 97 fL (79.0-98.0); MONOCYTES # (AUTO) 0.4 K/uL (0.0-1.0); MONOCYTES % (AUTO) 9.8 % (1.7-9.3); NEUTROPHILS # (AUTO) 2.2 K/uL (1.8-7.7); NEUTROPHILS % (AUTO) 54.2 % (40.0-70.0); PLATELET COUNT (AUTO) 159 K/uL (130-430); RED BLOOD CELL COUNT(AUTO) 4.09 MIL/uL (4.2-6.2); RED CELL DISTRIBUTION WIDTH 14.1 % (9.0-15.0); WHITE BLOOD COUNT (AUTO) 4.1 K/uL (4.8-10.8)
[2023-04-03 15:53] LABS: ANION GAP 7 (5-15); CHLORIDE 106 mmol/L (98-107); GLUCOSE 98 mg/dL (74-106); UREA NITROGEN, BLOOD 24 mg/dL (8-21)
[2023-04-03 16:00] LABS: ALANINE AMINOTRANSFERASE 24 U/L (12-78); ALBUMIN 3.6 g/dL (3.4-4.8); ASPARTATE AMINOTRANSFERASE 22 U/L (10-37); TOTAL BILIRUBIN 0.4 mg/dL (0.0-1.0)
[2023-04-03 16:01] LABS: BILIRUBIN,URINE NEGATIVE (NEGATIVE); BLOOD, URINE NEGATIVE (NEGATIVE); CLARITY/URINE CLEAR (CLEAR); COLOR,URINE YELLOW (YELLOW); GLUCOSE,URINE NEGATIVE (NEGATIVE); KETONES,URINE NEGATIVE (NEGATIVE); LEUKOCYTE ESTERASE ,URINE NEGATIVE (NEGATIVE); NITRITE, URINE NEGATIVE (NEGATIVE); PROTEIN URINE NEGATIVE (NEGATIVE); UROBILINOGEN,URINE 0.2 (0.2-1.0)
[2023-04-03] MEDS ORDERED: NS 500 ML IV ONE (17:15)
[2023-04-03 22:04] VITALS: BP_SYST 168; PULSE 86; RESP 22; TEMP 97.7; O2SAT 95
== END 2023-04-03 21:33 ==
LOC: SED 14:18
DX: E86.0 Dehydration (principal); R45.1 Restlessness and agitation; E11.9 Type 2 diabetes mellitus without complications; I10 Essential (primary) hypertension; E78.00 Pure hypercholesterolemia, unspecified; Z88.2 Allergy status to sulfonamides; Z88.5 Allergy status to narcotic agent; Z88.6 Allergy status to analgesic agent; Z79.899 Other long term (current) drug therapy
CPT/HCPCS: 99285; 96360; 71045; 80053; 83880; 85025; 87040; 87086; 84484; 36415; 93005; 83605; 81003; J7030

== ENCOUNTER 2023-08-16 21:27 | Emergency (ER) | payer OTHER, MEDICAID ==
[~2023-08-16] VITALS: Ht 162.6 cm; Wt 63.5 kg
[~2023-08-16 21:27] MED LIST changes: +MEMA5TAB PO
[2023-08-16 21:38] VITALS: BP_SYST 159; PULSE 78; RESP 18; TEMP 98.3; O2SAT 97
[2023-08-16 22:42] LABS: BASOPHILS % (AUTO) 0.6 % (0.0-2.0); EOSINOPHILS # (AUTO) 0.1 K/uL (0.0-0.4); EOSINOPHILS % (AUTO) 1.5 % (0.0-4.0); HEMATOCRIT 35.5 % (36-48); HEMOGLOBIN 11.6 g/dL (12.0-16.0); LYMPHOCYTES # (AUTO) 1.3 K/uL (1.0-5.5); LYMPHOCYTES % (AUTO) 30.6 % (20.5-51.5); MEAN CORPUSCULAR HEMOGLOBIN 32 pg (27-31); MEAN CORPUSCULAR HGB CONC 33 % (32-36); MEAN CORPUSCULAR VOLUME 98 fL (79.0-98.0); MONOCYTES # (AUTO) 0.4 K/uL (0.0-1.0); MONOCYTES % (AUTO) 10.1 % (1.7-9.3); NEUTROPHILS # (AUTO) 2.5 K/uL (1.8-7.7); NEUTROPHILS % (AUTO) 57.2 % (40.0-70.0); PLATELET COUNT (AUTO) 169 K/uL (130-430); RED BLOOD CELL COUNT(AUTO) 3.63 MIL/uL (4.2-6.2); RED CELL DISTRIBUTION WIDTH 13.6 % (9.0-15.0); WHITE BLOOD COUNT (AUTO) 4.4 K/uL (4.8-10.8)
[2023-08-16 22:54] LABS: ALANINE AMINOTRANSFERASE 26 U/L (12-78); ALBUMIN 3.3 g/dL (3.4-4.8); ANION GAP 4 (5-15); ASPARTATE AMINOTRANSFERASE 22 U/L (10-37); CALCIUM 8.8 mg/dL (8.4-11.0); CARBON DIOXIDE 32 mmol/L (23-29); CHLORIDE 102 mmol/L (98-107); CREATININE 1.09 mg/dL (0.55-1.30); GLUCOSE 108 mg/dL (74-106); POTASSIUM 4.1 mmol/L (3.5-5.1); SODIUM SERUM 138 mmol/L (136-145); TOTAL BILIRUBIN 0.3 mg/dL (0.0-1.0); TOTAL PROTEIN, SERUM 6.1 g/dL (6.4-8.3); UREA NITROGEN, BLOOD 25 mg/dL (8-21)
[2023-08-16] MEDS ORDERED: BREX0.5T PO (23:35)
[2023-08-16] MEDS ORDERED: [UNRECOGNIZED DRUG - CODE] PO (23:35)
[2023-08-16] MEDS ORDERED: HALOPERIDOL LACTATE 5 MG/ML VIAL IM ONE (23:45)
[2023-08-16] MEDS ORDERED: LORazepam 2 MG/ML VIAL IM ONE (23:45)
[2023-08-17 06:42] VITALS: BP_SYST 150; PULSE 61; RESP 12; TEMP 97; O2SAT 95
== END 2023-08-17 06:40 ==
LOC: SED 21:27
DX: S00.03XA Contusion of scalp, initial encounter (principal); I10 Essential (primary) hypertension; Z86.59 Personal history of other mental and behavioral disorders; E78.00 Pure hypercholesterolemia, unspecified; Z88.2 Allergy status to sulfonamides; Z88.5 Allergy status to narcotic agent; Z88.6 Allergy status to analgesic agent; W01.0XXA Fall on same level from slipping, tripping and stumbling without subsequent striking against object, initial encounter; Y93.89 Activity, other specified; Y92.89 Other specified places as the place of occurrence of the external cause; Y99.8 Other external cause status
CPT/HCPCS: 99291; 70450; 80053; 85025; 84484; 36415; 93005; 72125; 76376; 96372; J1630; J2060

== ENCOUNTER 2023-12-27 21:48 | Emergency (ER) | payer OTHER, MEDICAID ==
[~2023-12-27] VITALS: Ht 160 cm; Wt 77.1 kg
[~2023-12-27 21:48] MED LIST changes: +BREX0.5T PO; +[UNRECOGNIZED DRUG - CODE] PO
[2023-12-27 21:54] VITALS: BP_SYST 144; PULSE 74; RESP 18; TEMP 97; O2SAT 98
[2023-12-27] MEDS ORDERED: BACITRACIN 1 GM OINT TP ONE (23:37)
[2023-12-28 01:55] VITALS: PULSE 70; RESP 20; TEMP 98; O2SAT 98
[2023-12-28 02:00] VITALS: BP_SYST 125
== END 2023-12-28 02:00 | disposition home or self-care (01) ==
LOC: SED 21:48
DX: S00.83XA Contusion of other part of head, initial encounter (principal); E11.9 Type 2 diabetes mellitus without complications; I10 Essential (primary) hypertension; E78.00 Pure hypercholesterolemia, unspecified; Z88.2 Allergy status to sulfonamides; Z88.5 Allergy status to narcotic agent; Z88.6 Allergy status to analgesic agent; Z79.899 Other long term (current) drug therapy; W01.0XXA Fall on same level from slipping, tripping and stumbling without subsequent striking against object, initial encounter; Y93.89 Activity, other specified; Y92.89 Other specified places as the place of occurrence of the external cause; Y99.8 Other external cause status
CPT/HCPCS: 70450-TC; 99284